=== PATIENT | female | born 1945 | race Caucasian/White ===

== ENCOUNTER 2019-08-25 14:44 | Inpatient (IN) | payer OTHER ==
[~2019-08-25] VITALS: Ht 162.6 cm; Wt 108.9 kg
[2019-08-25] MEDS ORDERED: LIPITOR40 MG (14:50)
[2019-08-25] MEDS ORDERED: IRBESARTAN-HCT1 EACH (14:50)
--- NOTE | 2019-08-25 14:51 | NUR ---
SE RECIBE PTE ALERTA Y ORIENTADA X3 EN AMBULANCIA LA CUAL REFIERE QUE DESDE QUE LE CAMBIARON EL MEDICAMENTO DE LA PRESION ALTERIAL DE LOSARTAN A IRBERSARTAN ESTA CON DIFICULTAD RESPIRATORIA.
--- NOTE | 2019-08-25 17:13 | NUR ---
SRA. JOSE WOODS, ORIENTA AL PACIENTE SOBRE EKG, MUESTRAS DE LAMONT Y IV FLUID. PACIENTE REFIERE ENTENDER. SRA. GARCIA, PROCEEDE A COLECTAR LAS MUESTRAS UTILIZANDO MEDIDAS ASEPTICAS Y LAS ENVIA AL LABORATORIO. SE AU REALIZA EL EKG AL PACIENTE Y SE LO PRESENTA AL DR. DRAKE. SE PROCEEDE A CANALIZAR AL PACIENTE UTILIZANDO MEDIDAS ASEPTICAS. SE OBSERVA EL AREA Y PATENTICIDAD DE LA MISMA. LA MISMA ESTA PATENTE, BLAZE DE EDEMA Y ERITEMA.
--- NOTE | 2019-08-25 22:57 | NUR ---
SE RECIBE TRANSFER DEL AREA DE OBSERVACION AL AREA DE CHEST PAIN UNIT,PTE FEMENINA DE 75 YRS,PTE ALERTA X 3, SE ACOMODA EN ABELINO CPU # 18 CON BARANDAS ELEVADAS POR JAVIER SEGURIDAD,PTE SE CONECTA A MONITOR CARDIACO Y OXIMETRIA DE PULSO,PTE CON IVF'S PATENTES Y BLAZE DE EDEMA Y/O ERITEMA EN AREA DE VENOPUNCION, DR BIRD ORDENA TRIDIL 50 MG D5W 250 ML @ 3 ML/HRS, SE ORIENTA A PTE SOBRE TX A LLEVAR Y REFIERE ENTENDER SE OBSERVARAN POR CAMBIOS EN JAVIER CONDICION DE JUSTEN.
--- NOTE | 2019-08-26 00:56 | NUR ---
08/25/19 2300 PACIENTE ALERTA Y ORIENTADA X3. EN POSICION SEMI-SENTADA EN ABELINO #18 EN UNIDAD DE DOLOR DE PECHO CON BARANDAS ELEVADAS Y INTERCOM ACCESIBLE. SE OBSERVA PACIENTE UN POCO FATIGADA, PACIENTE REFIERE ESTAR BRETT. PACIENTE SATURANDO ENTRE 90-92%. CONECTADA A MONITOR CARDIACO. RECIBIENDO DRIP DE TRIDIL 50MG/250ML D5W BAJANDO A 3ML/HR Y 0.45% SS DE 1,000ML BAJANDO A 100ML/HR POR BRAZO R+. SE MIDE SIGNOS VITALES. PACIENTE CON BP MANUAL EN BRAZO R+ 160/70MMHG Y EN BRAZO L+ 80/60MMHG. SE NOTIFICO A DR. JAYSON BIRD. REFIERE CONTINUAR TRIDIL EN EL RATE DE 3ML/HR Y MANTENER MONITOREANDO A PACIENTE. SE COLOCO CANULA NASAL A 2 LITROS Y SATURACION DE OXIGENO MANUAL AUMENTO A 95%. 0000 SE JOHNATHAN MUESTRAS DE LAMONT BAJO MEDIDAS ASEPTICAS. SE CANALIZA EN MANO R+ BAJO MEDIDAS ASEPTICAS. PATENTE Y BLAZE DE EDEMA Y ERITEMA. SE OBSERAVA HEMATOMA EN MANO IZQUIERDA. 0004 SE MIDE BP EN BRAZO R+ 160/60MMHG Y EN BRAZO L+ 83/60MMHG. 0100 SE MIDE BP EN BRAZO L+ 107/65MMHG.
--- NOTE | 2019-08-26 07:24 | NUR ---
SE RECIBE PTE FEMENINDA EN LA UNIDAD DE CENTRO DE DOLOR DE PECHO EN EL CUBICULO #18 PTE ALERTA Y CONCIENTE POR 3 COBECTADA A MONITOR CARDIACO Y OXYMETRIA DE PULSO SE OBSERVA VENOPUNCION PATENTE Y BLAZE DE EDEMA RESPIRANDO CON ASISTENCIA DE CANULA @3LT, 2 PTE NO PRRESENTA DOLOR AL MOMENTO PTE SE MANTEINE EN OBSERVACION Y BAJO TRATAMIENTO EN ESPERA DEL DR CARNES.
--- NOTE | 2019-08-26 09:23 | NUR ---
SE OFRECE ASEO PERSONAL A PTE. EN CAMA SIN HII-BY CLEANS
== END 2019-08-30 11:08 | disposition designated cancer center or children's hospital (05) | DRG 282 ==
LOC: ER 14:44 → SEC-K 08-26 14:52 → MEDJ 08-26 14:52
PROVIDERS: ADMIT Internal Medicine
PROC: 4A12X4Z Monitoring of Cardiac Electrical Activity, External Approach (ICD-10-PCS; principal; 2019-08-26)
PROC: B246ZZZ Ultrasonography of Right and Left Heart (ICD-10-PCS; 2019-08-26)
PROC: 4A02XM4 Measurement of Cardiac Total Activity, External Approach (ICD-10-PCS; 2019-08-27)
PROC: 3E073KZ Introduction of Other Diagnostic Substance into Coronary Artery, Percutaneous Approach (ICD-10-PCS; 2019-08-27)
DX: I21.09 ST elevation (STEMI) myocardial infarction involving other coronary artery of anterior wall (principal); I11.9 Hypertensive heart disease without heart failure; I24.8 Other forms of acute ischemic heart disease

== ENCOUNTER 2024-01-21 14:56 | Emergency (ER) | payer OTHER ==
[~2024-01-21] VITALS: Ht 167.6 cm; Wt 98.0 kg
[~2024-01-21 14:56] MED LIST: IRBESARTAN-HCT1 EACH; LIPITOR40 MG
[2024-01-21] MEDS ORDERED: PLAVIX75 MG (15:11)
[2024-01-21] MEDS ORDERED: ONDANSETRON HCL 2 MG/ML VIAL IV STA (16:33)
[2024-01-21] MEDS ORDERED: RINGERS SOLUTION,LACTATED 1,000 ML IV STA (16:33)
[2024-01-21] MEDS ORDERED: FAMOTIDINE/PF 20 MG/2 ML VIAL IV PUSH STA (16:34)
[2024-01-21] MEDS ORDERED: PROMETHAZINE HCL 50 MG/ML AMPUL IM STA (16:35)
[2024-01-21] MEDS ORDERED: MEPERIDINE HCL/PF 50 MG/ML VIAL IM STA (16:35)
[2024-01-21 17:20] LABS: HEMATOCRIT 39.6 % (36.0-45.00); HEMOGLOBIN 13.3 g/dL (12.0-15.00); MEAN CELL VOLUME 92.2 fL (80.00-100.00); MEAN CORPUSCULAR HEMOGLOBIN 30.9 pg (27.00-32.0); MEAN CORPUSCULAR HGB CONC 33.5 g/dl (32.0-36.0); PLATELET COUNT 211 K/uL (150-450); RED CELL DISTRIBUTION WIDTH 14.2 % (11.5-14.5)
[2024-01-21 17:39] LABS: INR 1.04; PARTIAL THROMBOPLASTIN TIME 28.2 SECONDS (22.0-34.0); PROTHROMBIN TIME 10.9 SECONDS (9.0-11.5)
[2024-01-21 17:45] LABS: ALBUMIN 3.6 gm/dL (3.4-5.0); BILIRUBIN TOTAL 0.49 mg/dL (0.3-1.2); CALCIUM 9.4 mg/dL (8.5-10.1); CREATININE SERUM 1.22 mg/dL (0.55-1.02); GFR 42.52; GLOBULINA 4.4 G/DL (2.4-3.5); POTASSIUM 4.72 mEq/L (3.5-5.1)
[2024-01-21] MEDS ORDERED: cloNIDine HCL 0.3 MG TABLET PO STA (19:06)
== END 2024-01-21 22:23 | disposition home or self-care (01) ==
LOC: ER
DX: K29.70 Gastritis, unspecified, without bleeding (principal); R10.11 Right upper quadrant pain; K80.20 Calculus of gallbladder without cholecystitis without obstruction